=== PATIENT | female | born 1965 | race Caucasian/White ===

== ENCOUNTER 2020-06-03 11:02 | Inpatient (IN) | payer OTHER ==
[~2020-06-03] VITALS: Ht 165.1 cm; Wt 88.6 kg
[2020-06-03 11:12] VITALS: BP 115/58
[2020-06-03] MEDS ORDERED: NEURONTIN 300M300 M2 PO (11:15)
[2020-06-03 11:54] LABS: ABSOLUTE MONOCYTES 0.4 thou/uL (0.0-1.2); ABSOLUTE NEUTROPHILS 5.7 thou/uL (1.6-8.1); BASOPHILS 0.5 %; EOSINOPHILS 0.1 %; HEMATOCRIT 40.3 % (37.0-47.0); HEMOGLOBIN 13.4 gm/dL (12.0-15.0); LYMPHOCYTES 13.8 %; MCH 30.2 pg (26.0-34.0); MCHC 33.2 g/dL (28.0-37.0); MCV 90.9 fL (80.0-100.0); MONOCYTES 5.1 %; MPV 7.3 fl. (7.2-11.1); NUCLEATED RBCS 0 /100WBC; PLATELET COUNT* 224 thou/uL (150-400); POLYS 80.5 %; RBC 4.43 mil/uL (4.20-5.00); RDW-CV 13.5 % (10.5-14.5)
[2020-06-03 12:08] LABS: APTT 23.6 Seconds (25.0-31.3); PROTIME 10.4 Seconds (9.20-11.50)
[2020-06-03 12:42] LABS: CALCIUM 8.7 mg/dL (8.5-10.1); POTASSIUM 3.8 mmol/L (3.5-5.1)
[2020-06-03 12:52] LABS: ALBUMIN 3.3 g/dL (3.4-5.0); MAGNESIUM 2.3 mg/dL (1.8-2.4); TOTAL BILIRUBIN 0.4 mg/dL (<0.1-1.0); TOTAL PROTEIN 7.2 g/dL (6.4-8.2)
--- NOTE | 2020-06-03 15:15 | EKG ---
[place] [address] ELECTROCARDIOGRAM REPORT Name: BERNADETTE FUENTES Room: [place] [address] ADM [place] [facility]#: [id number] Admission: 06/03/20 Attend Phys: Mike Turner Discharge: Date of : 63 Date of Service: 06/03/20 1157 Report #: [id number] THIS REPORT FOR: //name// [facility] ED Test Date: 2020-06-03 Test Time: 11:57:33 Pat Name: BERNADETTE FUENTES Department: Room: [facility] Gender: F Line Inspector: THOR : 1965 Requested By: Arnold Earl Order Number: [id number] MD: Jadiel Andres Measurements Intervals [place] Rate: 73 P: 22 WA: 145 QRS: 7 QRSD: 88 T: 109 QT: 484 QTc: 534 Interpretive Statements Sinus rhythm Nonspecific T abnrm, anterolateral leads Prolonged QT interval Baseline wander in lead(s) V3 No previous ECG available for comparison Electronically Signed On 06-03-2020 15:15:40 [employer] by Jadiel Andres [email or web address] <ELECTRONICALLY SIGNED> By: Jadiel Andres MD, [facility] 06/03/20 1515 1157 1157 Jadiel Andres MD, [facility] /EPI
[2020-06-03 16:00] VITALS: BP 120/70
[2020-06-03 16:39] VITALS: BP 118/77
[2020-06-03 19:43] VITALS: BP 119/69
[2020-06-04] VITALS: BP 124/63
[2020-06-04 08:00] VITALS: BP 108/60
[2020-06-04 17:00] VITALS: BP 115/76
[2020-06-04 20:26] VITALS: BP 106/69
[2020-06-05 08:00] VITALS: BP 116/69
[2020-06-05 11:53] VITALS: BP 94/50
[2020-06-06 08:00] VITALS: BP 128/67
[2020-06-06] MEDS ORDERED: CEFDINIR300 MG PO (08:39)
[2020-06-06] MEDS ORDERED: PREDNISONE 10 M10 MG PO (08:39)
[2020-06-06 10:23] VITALS: BP 128/67
== END 2020-06-06 13:05 | disposition home or self-care (01) | DRG 177 ==
LOC: M.ERS 11:02 → M.ORTHSURG 13:43 → M.TBA-ER 13:43 → M.ORTHSURG 16:13
PROVIDERS: Family Medicine; ADMIT Internal Medicine; ATTEND Internal Medicine
DX: U07.1 COVID-19 (principal); J12.89 Other viral pneumonia; J96.00 Acute respiratory failure, unspecified whether with hypoxia or hypercapnia; J15.6 Pneumonia due to other Gram-negative bacteria; H92.02 Otalgia, left ear; M79.7 Fibromyalgia; Z90.711 Acquired absence of uterus with remaining cervical stump; Z79.899 Other long term (current) drug therapy; Z88.1 Allergy status to other antibiotic agents; Z88.2 Allergy status to sulfonamides; Z88.8 Allergy status to other drugs, medicaments and biological substances